=== PATIENT | male | born 1950 | race Caucasian/White ===

== ENCOUNTER 2022-12-06 14:55 | Outpatient (CLI) | payer OTHER, MEDICAID, SELFPAY ==
[2022-12-06 20:11] LABS: Chlamydia DNA Amplified* NOT DETECTED (No Detected); GC DNA Amplified* NOT DETECTED (No Detected)
== END 2022-12-06 14:56 | disposition home or self-care (01) ==
PROVIDERS: PCP Family Medicine; Visit Provider Family Medicine
DX: Z11.3 Encounter for screening for infections with a predominantly sexual mode of transmission (principal)
CPT/HCPCS: 86592; 86703; 87491; 87591

== ENCOUNTER 2022-12-14 07:00 | Outpatient (CLI) | payer OTHER, MEDICAID, SELFPAY ==
--- NOTE | 2022-12-14 07:15 | CRLHL7_ITS ---
For Patients: As a result of the Century Cures Act, medical imaging exams and procedure reports are released immediately into your electronic medical record. You may view this report before your referring provider. If you have questions, please contact your health care provider. INDICATION: 72-year-old male. History of smoking. Abdominal aortic aneurysm screening. TECHNIQUE: Directed abdominal aortic and proximal common iliac artery ultrasound. FINDINGS: The measured proximal abdominal aorta is 2.9 x 3.7 cm. This is likely erroneous. Please see the chest CT from the same date which included the proximal abdominal aorta. The mid aorta measures 2.0 x 2.5 cm and the distal aorta 2.0 x 2.0 cm. The proximal right common iliac artery measures 1.3 x 1.7 cm and the proximal common left iliac artery measures 1.4 x 1.6 cm. No periaortic masses. IMPRESSION: No convincing evidence for abdominal aortic or iliac artery aneurysms. Please note the proximal abdominal aortic measurement is erroneous. Dictated by Trace Grant MD @ 12/14/2022 12:08:05 PM (Electronically Signed)
--- NOTE | 2022-12-14 08:00 | CRLHL7_ITS ---
For Patients: As a result of the Century Cures Act, medical imaging exams and procedure reports are released immediately into your electronic medical record. You may view this report before your referring provider. If you have questions, please contact your health care provider. INDICATION: Personal history of nicotine dependence. The patient quit smoking many years ago. Cough. Family history of an enlarged aorta. TECHNIQUE: Noncontrast chest CT. COMPARISON: Correlation is made with a two-view chest x-ray July 06, 2014. FINDINGS: Minor dependent basilar atelectasis. The lungs are otherwise clear. No pulmonary nodules. No pleural or pericardial effusions. No thoracic lymphadenopathy. The ascending thoracic aorta is mildly aneurysmally dilated measuring between 4.0 and 4.1 cm in maximal dimension. The descending thoracic aorta is unremarkable. At the aortic hiatus measures between 2.5 and 2.7 cm. The proximal abdominal aorta is normal measuring between 2.3 and 2.4 cm. Normal adrenal glands. No splenomegaly. 2.7 x 2.8 cm cyst superior pole left renal cyst. Normal included skeleton. No rib or sternal fracture. No thoracic spine fracture. IMPRESSION: 1. Mild aneurysmal dilatation of the ascending thoracic aorta measuring up to nearly 4.1 cm. 2. Clear lungs. No pulmonary nodules. 3. Left renal cyst. Please note that all CT scans at this facility use dose modulation, iterative reconstruction, and/or weight-based dosing when appropriate to reduce radiation dose to as low as reasonably achievable. Dictated by Trace Grant MD @ 12/14/2022 10:45:15 AM (Electronically Signed)
== END 2022-12-14 07:01 | disposition home or self-care (01) ==
PROVIDERS: PCP Family Medicine; Visit Provider Family Medicine
DX: Z87.891 Personal history of nicotine dependence (principal); Z13.6 Encounter for screening for cardiovascular disorders
CPT/HCPCS: 71250; 76706

== ENCOUNTER 2023-02-04 08:54 | Outpatient (CLI) | payer OTHER, MEDICAID, SELFPAY ==
--- NOTE | 2023-02-04 07:52 | W.ANESCHARGE ---
Anesthesia Charges Start Date/Time Anesthesia Start Date: 02/04/23 Anesthesia Start Time: 10:34 Stop Date/Time Anesthesia Stop Date: 02/04/23 Anesthesia Stop Time: 11:28 Summary Extremes of Age - Over 70 or under 1: MDA
--- NOTE | 2023-02-04 11:31 | P.ANES_ITS ---
Anesthesia Charges Start Date/Time Anesthesia Start Date: 02/04/23 Anesthesia Start Time: 10:34 Stop Date/Time Anesthesia Stop Date: 02/04/23 Anesthesia Stop Time: 11:28 Summary Extremes of Age - Over 70 or under 1: [employer]AN
== END 2023-02-04 08:55 | disposition home or self-care (01) ==
LOC: OP CLINIC 08:55
PROVIDERS: PCP Family Medicine; Visit Provider Surgery
DX: R19.5 Other fecal abnormalities (principal); K63.5 Polyp of colon
CPT/HCPCS: 45380; 45385; 811; 88305; 99100; J2704

== ENCOUNTER 2023-03-22 09:30 | Day surgery (SDC) | payer OTHER, MEDICAID, SELFPAY ==
[2023-03-22] VITALS (21 sets, daily range): BP systolic 112–166; BP diastolic 73–106; PULSE 66–75; RESP 14–16; TEMP 35.8–36.7; O2SAT 91–99; BMI 32.0
[2023-03-22] MEDS: LACTATED RINGERS 1000 ML 1,000 ML 100 ML IV (09:30)
[2023-03-22] MEDS: SODIUM CHLORIDE 0.9 % (FLUSH) 10 ML SYRINGE IVF (10:09)
--- NOTE | 2023-03-22 11:00 | W.ANESCHARGE ---
Anesthesia Charges Start Date/Time Anesthesia Start Date: 03/22/23 Anesthesia Start Time: 11:16 Stop Date/Time Anesthesia Stop Date: 03/22/23 Anesthesia Stop Time: 12:10 Summary Extremes of Age - Over 70 or under 1: [employer]
--- NOTE | 2023-03-22 11:10 | W.ANESCHARGE ---
Anesthesia Charges Start Date/Time Anesthesia Start Date: 03/22/23 Anesthesia Start Time: 11:16 Stop Date/Time Anesthesia Stop Date: 03/22/23 Anesthesia Stop Time: 12:10 Summary Extremes of Age - Over 70 or under 1: MDA
[2023-03-22] MEDS: COCAINE HCL 4 % 4 ML SOLUTION NOSTRIL-B (11:30)
[2023-03-22] MEDS: AYR SALINE NASAL GEL 1 APPLIC NOSTRIL-B (11:35)
[2023-03-22] MEDS: MUPIROCIN 1 GM PACKET 1 APPLIC TOPICAL (11:56)
[2023-03-22] MEDS: BUPIVACAINE 0.5%/EPINEPHRINE 0.9 MG (30.9 ML) INJECTION (11:57)
--- NOTE | 2023-03-22 12:09 | P.ENTPROC_ITS ---
Procedure Note Date of procedure: 03/22/23 Procedure: Preoperative diagnosis nasal obstruction, severe deviated septum bilateral, bilateral inferior turbinate hypertrophy, chronic left maxillary rhinosinusitis Postoperative diagnosis same Procedure nasal septoplasty, submucous partial resection inferior turbinates bilateral, endoscopic left maxillary antrostomy with tissue removal Under general endotracheal anesthesia patient was prepped draped usual fashion the nose injected and decongested. The image guidance system did not register well so it was not used. A right hemitransfixion incision was made a left anterior tunnel was created there was redundant cartilage which was removed which opened up the left side of the septum. A right anterior tunnel was created and again there was redundant cartilage this was removed. There was not more than adequate amount of cartilage for tip and dorsal support. The nasal airway was now patent anteriorly. There was a large right area 4 impaction. The mucosa directly anterior to this was elevated and then an incision made with a Hopewell dissector to the opposite side mucosa was then elevated. The spur was infractured and then removed. It was not replaced. A stab incision was made in the anterior of the right inferior turbinate a tunnel created with a Mary dissector. The edgar bone was outfractured and a conservative anterior submucous resection performed with Gary forceps. The Coblation Wand was used for hemostasis and to cauterize intramurally along the inferior 10%. This was repeated on the left side in identical fashion. 0 degree endoscope was used to visualize the uncinate process. It was taken down inferiorly exposing natural ostium to maxillary sinus. A 9 mm antrostomy was created there was a small amount of polypoid tissue removed from the opening into the sinus and from the floor of the sinus. Silastic stents were secured with 3-0 nylon after 1st closing the hemitransfixion with 2 4-0 chromic sutures. A Merocel pack coated in Bactroban was trimmed lengthwise and placed on each side. Patient procedure well was taken recovery in satisfactory condition blood loss during procedure was less than 10 mL. Surgeon: Nahun Pollard MD
[2023-03-22] MEDS: fentaNYL 100 MCG/2 ML inj 50 MCG IVP ×2 (12:30→12:35)
--- NOTE | 2023-03-22 18:34 | PC.NURSE ---
End of Shift: Pt arrived to Med Surg post op from nasal surgery. Dressing to nose lightly soiled with blood, changed and reinforced. Remained CDI throughout remainder of shift. Pt reports pain at 2-3/10, denied need for further pain medication. Diet advanced to regular diet, saline locked. Tolerating diet well. Pt ambulating well with walker, prefers to use bedside urinal at this time. VSS.
[2023-03-22] MEDS: OXYCODONE 5 MG TABLET PO (21:06)
[2023-03-22] MEDS: ACETAMINOPHEN 325 MG TABLET PO (21:07)
[2023-03-23] MEDS: OXYCODONE 5 MG TABLET PO ×2 (03:11→08:37)
[2023-03-23 03:25] VITALS: BP 109/66; PULSE 82; RESP 18; TEMP 36.6; O2SAT 96
--- NOTE | 2023-03-23 06:14 | PC.NURSE ---
Shift note: Minimum bloody discharge from the nose, pain 5/10 treated per eMAR with relief and pt able to rest. Tolerating PO food and fluids with no c/o nausea
[2023-03-23 07:00] VITALS: BP 112/82; PULSE 75; RESP 18; TEMP 36.4; O2SAT 96
[2023-03-23] MEDS: ACETAMINOPHEN 325 MG TABLET PO (08:37)
--- NOTE | 2023-03-23 11:42 | PC.NURSE ---
Discharge: Pt friendly and cooperative, rates his pain 3-4/10. PRN Oxycodone and Tylenol given. Small amounts of bloody drainage to nasal dressing, gauze was changed x2 today. VS WNL and LS COA. Afebrile. IV dc'd catheter intact. Discharge instructions/follow up reviewed with pt and his daughter who both verbalized understanding. He was discharged to home via wheelchair at 11:21 in the care of his daughter.
== END 2023-03-23 11:57 | disposition home or self-care (01) ==
LOC: OR 09:31 → MEDSURG 09:31
PROVIDERS: PCP Family Medicine; Visit Provider Otolaryngology
PROC: (CPT 31231; principal; 2023-03-22 10:45)
DX: J34.2 Deviated nasal septum (principal); J34.3 Hypertrophy of nasal turbinates; J32.0 Chronic maxillary sinusitis
CPT/HCPCS: 30520; 30140; 31267; 00160; 88304; 99100; A9270; J0330; J1100; J2405; J2704; J3010; J7120

== ENCOUNTER 2024-03-12 08:48 | Outpatient (CLI) | payer OTHER, MEDICAID, SELFPAY | END 2024-03-12 08:49 | disposition home or self-care (01) | PROVIDERS: PCP Family Medicine; Visit Provider Family Medicine | DX: Z01.818 Encounter for other preprocedural examination (principal); E78.5 Hyperlipidemia, unspecified; R73.09 Other abnormal glucose; Z12.5 Encounter for screening for malignant neoplasm of prostate | CPT/HCPCS: 80053; 80061; G0103 ==

== ENCOUNTER 2024-03-20 08:39 | Outpatient (CLI) | payer OTHER, MEDICAID, SELFPAY ==
--- NOTE | 2024-03-20 09:00 | CRLHL7_ITS ---
For Patients: As a result of the Century Cures Act, medical imaging exams and procedure reports are released immediately into your electronic medical record. You may view this report before your referring provider. If you have questions, please contact your health care provider. INDICATION: Follow-up thoracic aortic aneurysm. COMPARISON: [address] TECHNIQUE: Noncontrast CT of the chest. FINDINGS: Aortic caliber is unchanged. Greatest AP diameter in the ascending portion at the level of the crossing right main pulmonary artery is at 4.2 cm. Benign cyst upper pole left kidney again demonstrated. Splenule ventral from the spleen. No significant finding in the lung parenchyma. No pathologic adenopathy. IMPRESSION: Stable mild dilatation ascending aorta to 4.2 cm. Please note that all CT scans at this facility use dose modulation, iterative reconstruction, and/or weight-based dosing when appropriate to reduce radiation dose to as low as reasonably achievable. Dictated by Isaac Abdullahi MD @ 03/21/2024 4:38:52 PM (Electronically Signed)
== END 2024-03-20 08:40 | disposition home or self-care (01) ==
LOC: CT 08:39
PROVIDERS: PCP Family Medicine; Visit Provider Family Medicine
DX: I71.20 Thoracic aortic aneurysm, without rupture, unspecified (principal)
CPT/HCPCS: 71250

== ENCOUNTER 2025-04-27 11:47 | Outpatient (CLI) | payer MEDICARE, MEDICAID, SELFPAY | END 2025-04-27 11:48 | disposition home or self-care (01) | LOC: NFLDREF 04-30 07:42 | PROVIDERS: PCP Family Medicine; Referring Provider Family Medicine; Visit Provider Family Medicine | DX: G11.9 Hereditary ataxia, unspecified (principal); G25.82 Stiff-man syndrome; L98.9 Disorder of the skin and subcutaneous tissue, unspecified; E78.5 Hyperlipidemia, unspecified | CPT/HCPCS: 80053; 80061; G0103 ==